=== PATIENT | male | born 1965 | race Caucasian/White ===

== ENCOUNTER 2023-11-13 08:17 | Outpatient (OUT) | payer BC, SELFPAY ==
--- NOTE | 2023-11-13 | XR_ITS ---
[address] [address] Patient Name: STACI PENN MRN: [id number] date: 1965 Sex: M Assigned Patient Location: Current Patient Location: Accession/Order Number: [id number] Exam Date: 11/13/2023 08:17 Report Date: 11/13/2023 09:34 At the request of: BRIDGER ESPINOSA Procedure: XR knee LT 4V PROCEDURE: XR knee LT 4V COMPARISON: None. HISTORY: RIGHT KNEE PAIN FINDINGS: BONES:Proximal compartment osteoarthritis severe in the medial compartment where there is [id number] articulation with marginal osteophyte formation SOFT TISSUES:Negative. No visible soft tissue swelling. EFFUSION:None visible. OTHER: Negative. 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
== END 2023-11-13 08:18 | disposition home or self-care (01) ==
LOC: EC 08:17
PROVIDERS: PCP Orthopaedic Surgery; Visit Provider Orthopaedic Surgery
DX: M25.562 Pain in left knee (principal)
CPT/HCPCS: 73564